=== PATIENT | male | born 1950 | race Caucasian/White ===

== ENCOUNTER 2018-02-26 08:58 | Day surgery (SDC) | payer MEDICARE ==
[2018-02-25 10:45] VITALS: BMI 29.8
[2018-02-26] MEDS ORDERED: Lidocaine 1% (PF) 30 ML VIAL ONE (09:59)
[2018-02-26] MEDS ORDERED: Iopamidol 370 76% 100 ML VIAL ONE (10:24)
[2018-02-26] MEDS ORDERED: Iopamidol 370 76% 50 ML VIAL FS ONE (10:24)
[2018-02-26] MEDS ORDERED: Midazolam HCl 2 mg/2 ml Vial ONE (10:42)
[2018-02-26] MEDS ORDERED: Fentanyl 100 MCG/2 ML VIAL ONE (10:42)
[2018-02-26] MEDS ORDERED: Heparin 10,000 UNITS/1 ML VIAL ONE (11:38)
[2018-02-26] MEDS ORDERED: Prasugrel 10 MG TAB ONE ×3 (11:50→11:51)
[2018-02-26] MEDS ORDERED: Acetaminophen/Codeine 30-300mg Tablet ONE (14:29)
--- NOTE | 2018-02-28 17:53 | EKG ---
Test Reason : POST STENT Blood Pressure : / mmHG Vent. Rate : 062 BPM Atrial Rate : 062 BPM P-R Int : 190 ms QRS Dur : 114 ms QT Int : 462 ms P-R-T Axes : 084 014 112 degrees QTc Int : 468 ms Normal sinus rhythm with sinus arrhythmia T wave abnormality, consider lateral ischemia Prolonged QT Abnormal ECG No previous ECGs available Confirmed by PATRICIO LARA (2) on 02/28/2018 5:53:04 PM Referred By: NIKHIL Confirmed By:PATRICIO LARA
== END 2018-02-26 16:52 | disposition home or self-care (01) ==
LOC: CCL 08:58
PROVIDERS: ATTEND Internal Medicine Cardiovascular Disease
PROC: 4A023N7 Measurement of Cardiac Sampling and Pressure, Left Heart, Percutaneous Approach (ICD-10-PCS; principal; 2018-02-26)
PROC: B2111ZZ Fluoroscopy of Multiple Coronary Arteries using Low Osmolar Contrast (ICD-10-PCS; 2018-02-26)
DX: I25.10 Atherosclerotic heart disease of native coronary artery without angina pectoris (principal); I25.5 Ischemic cardiomyopathy; I11.9 Hypertensive heart disease without heart failure; E78.00 Pure hypercholesterolemia, unspecified; E78.5 Hyperlipidemia, unspecified; E11.9 Type 2 diabetes mellitus without complications; Z79.82 Long term (current) use of aspirin; Z79.84 Long term (current) use of oral hypoglycemic drugs; Z79.899 Other long term (current) drug therapy; Z95.1 Presence of aortocoronary bypass graft
CPT/HCPCS: 85347 ×2; 93005; 93455; 93798; C1769 ×2; C1874; C1887; C9600; 92928; 99152; 99153; J1644; J2001; J2250; J3010

== ENCOUNTER 2018-07-30 14:47 | Emergency (ER) | payer MEDICARE ==
--- NOTE | 2018-07-30 15:43 | RAD ---
TWO VIEW CHEST: Indication: Cough, hypoxia. FINDINGS: There is mild pleural based density at the inferior left chest with slight silhouetting of the left h emidiaphragm. Cardiac silhouette is enlarged. No lobar consolidation is seen. There is osseous degene rative change. IMPRESSION: Mild pleural based density with slight silhouetting of left hemidiaphragm previously on the basis of mild volume pleural fluid. POS: [facility]
[2018-07-30 17:20] LABS: #Lymphocytes 0.6 thou/uL (1.20-3.40); #Monocytes 0.5 thou/uL (0.11-0.59); #Neutrophils 4.4 thou/uL (1.40-6.50); %Eosinophils 0.4 % (0.0-10.0); %Lymphocytes 10.2 % (21.0-51.0); %Neutrophils 80.4 % (42.0-75.0); Hemoglobin 14.5 g/dL (14.0-18.0); Mean Corpuscular HGB CONC 33.4 g/dL (32.0-36.0); Mean Corpuscular Hemoglobin 33.2 pg (27.0-31.0); Mean Corpuscular Volume 99.2 fL (78.0-98.0); Mean Platelet Volume 6.4 fL (7.4-10.4); Platelet Count 178 thou/uL (130-400); RBC Distribution Width 12.2 % (11.5-14.5); Red Blood Cell (RBC) Count 4.37 mill/uL (4.70-6.10); White Blood Cell (WBC) Count 5.5 thou/uL (4.8-10.8)
[2018-07-30 17:45] LABS: ALT (SGPT) 17 U/L (8-55); AST (SGOT) 26 U/L (5-34); Albumin 4.3 g/dL (3.4-4.8); Alkaline Phosphatase 65 U/L (40-150); Anion Gap 16 mmol/L (10-20); BUN (Urea Nitrogen) 20 mg/dL (8.4-25.7); Bilirubin, Total 0.6 mg/dL (0.2-1.2); Calc. Creatinine Clearance 0 mL/min (70-130); Calcium 9.5 mg/dL (7.8-10.44); Carbon Dioxide 24 mmol/L (23-31); Chloride 99 mmol/L (98-107); Estimated GFR-MDRD 80; Globulin 3.2 g/dL (2.4-3.5); Glucose 111 mg/dL (80-115); Potassium 4.5 mmol/L (3.5-5.1); Protein, Total 7.5 g/dL (5.8-8.1); Sodium 134 mmol/L (136-145)
[2018-07-30] MEDS ORDERED: predniSONE 20 MG TAB ONE ×2 (18:37)
[2018-07-30] MEDS ORDERED: Albuterol Sulfate 2.5 mg/3 ml Neb ONE (18:42)
== END 2018-07-30 19:11 | disposition home or self-care (01) ==
LOC: ERS 14:47
DX: J20.9 Acute bronchitis, unspecified (principal); E11.9 Type 2 diabetes mellitus without complications; F17.210 Nicotine dependence, cigarettes, uncomplicated; Z79.51 Long term (current) use of inhaled steroids; Z79.84 Long term (current) use of oral hypoglycemic drugs
CPT/HCPCS: 36415; 71046; 80053; 83605; 83880; 84484; 85025; 87040; 87804; 93005; 94640; J7611; J7620

== ENCOUNTER 2018-08-04 15:18 | Observation (INO) | payer MEDICARE ==
--- NOTE | 2018-08-04 16:07 | RAD ---
PORTABLE CHEST: 08/04/18 HISTORY: Hypoxia. COMPARISON: 07/30/18 exam. Heart size appears borderline size considering somewhat lordotic technique. There are atherosclerotic changes of the aorta. There is some chronic appearing lung changes seen. No signs of focal infiltrat e or evidence for failure. IMPRESSION: Borderline heart size. No signs of overt failure. POS: [facility]
[2018-08-04 16:12] LABS: #Lymphocytes 1.3 thou/uL (1.20-3.40); #Monocytes 0.7 thou/uL (0.11-0.59); #Neutrophils 3.1 thou/uL (1.40-6.50); %Eosinophils 0.4 % (0.0-10.0); %Monocytes 13.2 % (0.0-10.0); %Neutrophils 61.4 % (42.0-75.0); Hemoglobin 14.4 g/dL (14.0-18.0); Mean Corpuscular HGB CONC 32.8 g/dL (32.0-36.0); Mean Corpuscular Hemoglobin 32.2 pg (27.0-31.0); Mean Corpuscular Volume 98.2 fL (78.0-98.0); Mean Platelet Volume 6.9 fL (7.4-10.4); Platelet Count 254 thou/uL (130-400); RBC Distribution Width 12.1 % (11.5-14.5); Red Blood Cell (RBC) Count 4.48 mill/uL (4.70-6.10)
[2018-08-04 16:39] LABS: ALT (SGPT) 23 U/L (8-55); AST (SGOT) 16 U/L (5-34); Albumin 3.6 g/dL (3.4-4.8); Alkaline Phosphatase 75 U/L (40-150); Anion Gap 14 mmol/L (10-20); BUN (Urea Nitrogen) 21 mg/dL (8.4-25.7); Bilirubin, Total 0.6 mg/dL (0.2-1.2); Calc. Creatinine Clearance 0 mL/min (70-130); Calcium 9.6 mg/dL (7.8-10.44); Carbon Dioxide 27 mmol/L (23-31); Chloride 99 mmol/L (98-107); Estimated GFR-MDRD 86; Globulin 3.5 g/dL (2.4-3.5); Glucose 249 mg/dL (80-115); Potassium 4.3 mmol/L (3.5-5.1); Protein, Total 7.1 g/dL (5.8-8.1); Sodium 136 mmol/L (136-145)
[2018-08-04 17:39] LABS: Base Excess-Venous 2.5 mmol/L (-2.0 to 3.0); Bicarbonate (HCO3v) 25.9 mmol/L (22.0-28.0); CO2 Tension (PvCO2) 35.4 mmHg (40.0-50.0); Chloride 100 mmol/L (98-107); Hemoglobin - Calc 14.5 g/dL (14.0-18.0); O2 Tension (PvO2) 67.5 mmHg (35.0-45.0); Potassium 4.2 mmol/L (3.5-5.1); Sodium 136 mmol/L (138-145); pH (Venous) 7.473 (7.320-7.430); vO2 Saturation-calc 94.5 % (60.0-85.0)
[2018-08-04 19:58] LABS: Bilirubin Negative (Negative); Blood, Urine Negative (Negative); Clarity CLEAR (Clear); Glucose, Urine (Dipstick) 100 mg/dL (Negative); Leukocyte Negative (Negative); Nitrite Negative (Negative); Protein, Urine (Dipstick) 100 mg/dL (Neg-Trace); Specific Gravity, Urine 1.028 (1.002-1.036); Urobilinogen 0.2 mg/dL (0.2-1.0)
[2018-08-04 20:00] LABS: Bacteria/HPF None Seen HPF (None Seen); Hyaline Casts/LPF 0-3 HYALINE CAST LPF (0-3 Hyaline); Pathc Cast-AUWi Flag 0.29 (0-2.49); Squamous Epithelial 0-3 HPF (0-3); WBC/HPF 0-3 HPF (0-3)
[2018-08-04 20:37] VITALS: BMI 26.6
[2018-08-04] MEDS ORDERED: Ondansetron PF 4 MG/2 ML Vial IVP PRN (23:38)
[2018-08-04] MEDS ORDERED: Acetaminophen 325 MG TAB PO PRN (23:38)
[2018-08-04] MEDS ORDERED: Ondansetron ODT 4 MG TAB PO PRN (23:38)
[2018-08-05] MEDS ORDERED: methylPREDNISolone Sod Succ 40 MG VIAL IVP SCH (00:44)
[2018-08-05] MEDS ORDERED: Benzonatate 100 MG CAP PO PRN (00:45)
[2018-08-05] MEDS: Albuterol Sulfate 2.5 mg/3 ml Neb NEB SCH ×2 (01:42→02:50)
[2018-08-05] MEDS ORDERED: Albuterol Sulfate 2.5 mg/3 ml Neb NEB PRN (03:15)
[2018-08-05 05:03] LABS: #Lymphocytes 0.7 thou/uL (1.20-3.40); #Monocytes 0.3 thou/uL (0.11-0.59); #Neutrophils 3.9 thou/uL (1.40-6.50); %Basophils 0.1 % (0.0-1.0); %Eosinophils 0.5 % (0.0-10.0); %Lymphocytes 13.4 % (21.0-51.0); %Monocytes 6.7 % (0.0-10.0); %Neutrophils 79.3 % (42.0-75.0); Hemoglobin 13.5 g/dL (14.0-18.0); Mean Corpuscular HGB CONC 32.5 g/dL (32.0-36.0); Mean Corpuscular Hemoglobin 32.2 pg (27.0-31.0); Mean Corpuscular Volume 99.2 fL (78.0-98.0); Mean Platelet Volume 6.6 fL (7.4-10.4); Platelet Count 230 thou/uL (130-400); Red Blood Cell (RBC) Count 4.18 mill/uL (4.70-6.10); White Blood Cell (WBC) Count 4.9 thou/uL (4.8-10.8)
[2018-08-05 05:21] LABS: Anion Gap 14 mmol/L (10-20); BUN (Urea Nitrogen) 15 mg/dL (8.4-25.7); Calc. Creatinine Clearance 119 mL/min (70-130); Carbon Dioxide 26 mmol/L (23-31); Chloride 99 mmol/L (98-107); Estimated GFR-MDRD Greater than 90; Glucose 248 mg/dL (80-115); Potassium 4.6 mmol/L (3.5-5.1); Sodium 134 mmol/L (136-145)
--- NOTE | 2018-08-05 06:09 | HP ---
PRIMARY CARE DOCTOR: Graham Blanco DO CODE STATUS: Full code. TIME OF EVALUATION: 07:30 p.m. CHIEF COMPLAINT: Shortness of breath. HISTORY OF PRESENT ILLNESS: This is a 68-year-old male patient with past medical history of coronary artery disease, status post stents; diabetes type 2; came to the hospital after having shortness of breath for the past 2 weeks associated with cough. No clear triggers. No alleviating factors. He had received some treatment for possible infection, however, he only took 2 pills and symptoms have gotten gradually worse, very severe, the patient was unable to do activities of daily living. Symptoms were generalized, worsening with exertion. REVIEW OF SYSTEMS: CONSTITUTIONAL: No fever, chills, generalized weakness. RESPIRATORY: Patient has cough. No sputum production. Shortness of breath. CARDIOVASCULAR: No chest pain or palpitation. GASTROINTESTINAL: No nausea, vomiting, diarrhea, or abdominal pain. CENTRAL NERVOUS SYSTEM: No dizziness, headache, or feeling lightheaded. GENITOURINARY: No burning on urination. EXTREMITIES: No leg swelling. All other systems were reviewed and negative except for the findings mentioned above. PAST MEDICAL HISTORY: As mentioned in HPI. PAST SURGICAL HISTORY: CABG x5 vessels 20 years ago. PSYCH HISTORY: No previous psych history. SOCIAL HISTORY: The patient uses alcohol, one cigarette a day. No drugs. No alcohol use. FAMILY HISTORY: Reviewed and noncontributory for current presentation KNOWN ALLERGIES: No known drug allergies reported. MEDICATIONS: 1. Metformin. 2. Albuterol. 3. Prednisone. 4. Zithromax. PHYSICAL EXAMINATION: VITAL SIGNS: On presentation, blood pressure 167/53 with heart rate 72, temperature 97.7, oxygen saturation 88% on room air. GENERAL: The patient is alert, oriented, mild distress due to shortness of breath. HEENT: Eyes, normal conjunctivae. Moist oral mucosa. Anicteric. No JVD. RESPIRATORY: Bilateral air entry. No rales. No wheezes. Symmetric expansion. CARDIOVASCULAR: Normal rate, regular rhythm. No murmurs. No gallops. Bilateral leg edema. ABDOMEN: Soft. Normal bowel sounds. MUSCULOSKELETAL: Baseline range of motion and strength. No tenderness. SKIN: Warm intact. No pallor. No rash. No redness. Peripheral pulses are present. Capillary refill seems to be intact. NEUROLOGIC: No evidence of any new focal weakness. Baseline speech. Cranial nerves seems to be intact. PSYCHIATRIC: The patient is in good mood. No anxiety. Optimal judgment. DIAGNOSTIC DATA: EKG was reviewed. The patient has sinus rhythm with a rate of 71, SC 108, QRS 114, QT corrected 432. Chest x-ray was reviewed. The patient has borderline heart size. No sign of heart failure. LABORATORY DATA: Labs were reviewed. White count 4.9, hemoglobin is 13.5, and platelet count 230. Blood gas, VBG was done, pH of 7.47. Sodium 134. GFR greater than 90. Glucose 248. Beta natriuretic peptide was 515. Urine osmo was negative. ASSESSMENT AND PLAN: The patient will be placed in the hospital with following medical problems: 1. Patient presented with acute hypoxic respiratory failure, no clear triggers, possible underlying congestive heart failure. Saturation 88% on room air needing nasal canula to keep saturation above 90%. We will treat underlying condition. Continue oxygen support. 2. Possible underlying congestive heart failure. The patient has elevated proBNP. Reconcile home medications. The patient will be placed on Lasix. We will look for response to treatment and further adjustment. 3. Possible unknown diagnosed chronic obstructive pulmonary disease. The patient history of smoking. The patient has bilateral wheezing. We will put him on steroids, and DuoNebs. We will follow patient. 4. History of diabetes, uncontrolled. Blood sugar 248, reconcile home medications. Put the patient on sliding scale. 5. DVT prophylaxis Job ID: [id number] [facility]
[2018-08-05] MEDS: methylPREDNISolone Sod Succ 40 MG VIAL IVP SCH ×3 (06:32→17:28)
[2018-08-05] MEDS: Spironolactone 25 MG TAB PO SCH (09:15)
[2018-08-05] MEDS: Lisinopril 20 MG TAB PO SCH ×2 (09:15→20:37)
[2018-08-05] MEDS: Enoxaparin Sodium 40 MG/0.4 ML SYRINGE SC SCH (09:15)
[2018-08-05] MEDS: Aspirin 325 mg Enteric Coated Tablet PO SCH ×2 (09:15→20:36)
[2018-08-05] MEDS: Furosemide 40 MG/4 ML VIAL SLOW IVP SCH (09:15)
[2018-08-05] MEDS: Cyanocobalamin (Vitamin B-12) 1,000 MCG TAB PO SCH (09:16)
[2018-08-05] MEDS: Multivitamin W/ Minerals 1 TAB PO SCH (09:16)
--- NOTE | 2018-08-05 11:26 | PDOC.PN ---
- Subjective Encounter Start Date: 08/05/18 Encounter Start Time: 10:45 Mr. Phillips was seen today in follow-up of Acute respiratory failure. He says he is feeling better. He denies chest pain. His notes a non-productive cough - Objective Resuscitation Status - Order Detail: 08/04/18 23:38 Resuscitation Status Routine Resuscitation Status: FULL: Full Resuscitation MAR Reviewed: Yes Vital Signs & Weight: Vital Signs (12 hours) Temp Pulse Resp BP Pulse Ox 08/05/18 10:14 65 16 95 08/05/18 07:26 98.2 F 62 16 156/70 H 93 L 08/05/18 06:44 65 16 92 L 08/05/18 03:43 97.7 F 67 24 H 159/70 H 94 L 08/05/18 01:42 18 92 L 08/04/18 23:35 98.1 F 66 22 H 170/88 H 93 L Weight Weight 201 lb 14.4 oz I&O: 08/04/18 08/05/18 08/06/18 06:59 06:59 06:59 Intake Total 600 Balance 600 Result Diagrams: 08/05/18 04:22 08/05/18 04:22 Additional Labs: Accuchecks 08/04/18 20:57 POC Glucose 256 H Phys Exam - Physical Examination HEENT: PERRLA Respiratory: wheezing present + wheezing and rhonchi bilaterally, no rales Cardiovascular: RRR, no significant murmur, no rub Gastrointestinal: soft, non-tender, no distention, positive bowel sounds Musculoskeletal: pulses present, edema present trace pedal edema bilaterally Neurological: non-focal, moves all 4 limbs Dx/Plan (1) Acute respiratory failure with hypoxia Code(s): J96.01 - ACUTE RESPIRATORY FAILURE WITH HYPOXIA Status: Acute (2) COPD exacerbation Code(s): J44.1 - CHRONIC OBSTRUCTIVE PULMONARY DISEASE W (ACUTE) EXACERBATION Status: Acute (3) CHF exacerbation Code(s): I50.9 - HEART FAILURE, UNSPECIFIED Status: Acute (4) Diabetes mellitus type 2 in nonobese Code(s): E11.9 - TYPE 2 DIABETES MELLITUS WITHOUT COMPLICATIONS Status: Chronic (5) Coronary artery disease Code(s): I25.10 - ATHSCL HEART DISEASE OF [place] CORONARY ARTERY W/O ANG PCTRS Status: Chronic - Plan * Acute respiratory failure with hypoxemia- agree this is most likely from both undiagnosed COPD with exacerbation, and some volume overload- presumably from CHF- continue Lasix IV- await Echo results * Continue Duonebs, and Steroids, and Levaquin IV. recommend outpatient PFT * DM- blood glucose is elevated from steroids- will add a SSI. * CAD and recent STENT- stable
[2018-08-05] MEDS ORDERED: HumaLOG 300 UNITS/3 ML VIAL SC PRN (11:30)
[2018-08-05] MEDS ORDERED: Dextrose 50% Abboject 50 ML SYRINGE SLOW IVP PRN (11:30)
[2018-08-05] MEDS ORDERED: Dextrose 5% in Water 1,000 ML IV PRN (11:30)
[2018-08-05] MEDS: HumaLOG 300 UNITS/3 ML VIAL SC PRN ×2 (11:51→17:27)
[2018-08-05] MEDS ORDERED: Temazepam 15 MG CAP PO PRN (18:01)
[2018-08-05] MEDS ORDERED: Atorvastatin Calcium 10 MG TAB PO SCH (21:00)
[2018-08-05] MEDS ORDERED: Liraglutide [Victoza 3-Pak] 1.8 MG SC SCH (21:00)
[2018-08-06] MEDS: methylPREDNISolone Sod Succ 40 MG VIAL IVP SCH ×3 (00:24→13:31)
[2018-08-06] MEDS: Bacteriostatic Water 30 ML VIAL FS PRN ×2 (00:24→06:01)
[2018-08-06 05:28] LABS: #Lymphocytes 0.7 thou/uL (1.20-3.40); #Monocytes 0.2 thou/uL (0.11-0.59); #Neutrophils 5.1 thou/uL (1.40-6.50); %Basophils 0.2 % (0.0-1.0); %Eosinophils 0.3 % (0.0-10.0); %Lymphocytes 11.7 % (21.0-51.0); %Monocytes 3.8 % (0.0-10.0); Hemoglobin 13.6 g/dL (14.0-18.0); Mean Corpuscular HGB CONC 33.2 g/dL (32.0-36.0); Mean Corpuscular Hemoglobin 32.7 pg (27.0-31.0); Mean Corpuscular Volume 98.5 fL (78.0-98.0); Mean Platelet Volume 6.7 fL (7.4-10.4); Platelet Count 265 thou/uL (130-400); Red Blood Cell (RBC) Count 4.14 mill/uL (4.70-6.10); White Blood Cell (WBC) Count 6.1 thou/uL (4.8-10.8)
[2018-08-06 05:47] LABS: Anion Gap 12 mmol/L (10-20); BUN (Urea Nitrogen) 23 mg/dL (8.4-25.7); Calc. Creatinine Clearance 104 mL/min (70-130); Calcium 8.9 mg/dL (7.8-10.44); Carbon Dioxide 27 mmol/L (23-31); Chloride 98 mmol/L (98-107); Estimated GFR-MDRD 88; Glucose 341 mg/dL (80-115); Potassium 4.9 mmol/L (3.5-5.1); Sodium 132 mmol/L (136-145)
[2018-08-06] MEDS: HumaLOG 300 UNITS/3 ML VIAL SC PRN ×2 (06:07→13:23)
[2018-08-06] MEDS: Lisinopril 20 MG TAB PO SCH (09:29)
[2018-08-06] MEDS: Multivitamin W/ Minerals 1 TAB PO SCH (09:29)
[2018-08-06] MEDS: Spironolactone 25 MG TAB PO SCH (09:29)
[2018-08-06] MEDS: Cyanocobalamin (Vitamin B-12) 1,000 MCG TAB PO SCH (09:29)
[2018-08-06] MEDS: Aspirin 325 mg Enteric Coated Tablet PO SCH (09:29)
[2018-08-06] MEDS: Furosemide 40 MG/4 ML VIAL SLOW IVP SCH (09:30)
[2018-08-06] MEDS: Enoxaparin Sodium 40 MG/0.4 ML SYRINGE SC SCH (09:30)
[2018-08-06] MEDS ORDERED: Dulaglutide [Trulicity] 1.5 MG SC SCH (11:15)
--- NOTE | 2018-08-06 11:42 | PDOC.PN ---
- Subjective Encounter Start Date: 08/06/18 Encounter Start Time: 11:40 Mr. Phillips was seen today in follow-up of Shortness of breath. He is feeling much better today. He would like to go home. - Objective Resuscitation Status - Order Detail: 08/04/18 23:38 Resuscitation Status Routine Resuscitation Status: FULL: Full Resuscitation MAR Reviewed: Yes Vital Signs & Weight: Vital Signs (12 hours) Temp Pulse Resp BP Pulse Ox 08/06/18 10:27 84 16 93 L 08/06/18 07:58 97.7 F 74 16 136/71 93 L 08/06/18 07:06 72 16 92 L 08/06/18 05:39 98 F 60 14 111/56 L 91 L 08/06/18 03:20 92 L Weight Weight 201 lb 14.4 oz I&O: 08/05/18 08/06/18 08/07/18 06:59 06:59 06:59 Intake Total 600 1240 Output Total 300 Balance 600 940 Result Diagrams: 08/06/18 04:55 08/06/18 04:55 Additional Labs: Accuchecks 08/06/18 08/06/18 08/05/18 10:40 06:01 20:36 POC Glucose 378 H 320 H 305 H 08/05/18 17:06 POC Glucose 440 H Phys Exam - Physical Examination HEENT: PERRLA Respiratory: wheezing present + occasional whyeeze, and mild rales at the bases Cardiovascular: RRR, no significant murmur, no rub Gastrointestinal: soft, non-tender, positive bowel sounds Musculoskeletal: no edema Dx/Plan (1) Acute respiratory failure with hypoxia Code(s): J96.01 - ACUTE RESPIRATORY FAILURE WITH HYPOXIA Status: Acute (2) COPD exacerbation Code(s): J44.1 - CHRONIC OBSTRUCTIVE PULMONARY DISEASE W (ACUTE) EXACERBATION Status: Acute (3) CHF exacerbation Code(s): I50.9 - HEART FAILURE, UNSPECIFIED Status: Acute (4) Diabetes mellitus type 2 in nonobese Code(s): E11.9 - TYPE 2 DIABETES MELLITUS WITHOUT COMPLICATIONS Status: Chronic (5) Coronary artery disease Code(s): I25.10 - ATHSCL HEART DISEASE OF [place] CORONARY ARTERY W/O ANG PCTRS Status: Chronic - Plan * Acute on chronic respiratory failure- improved * CHF- better compensated * COPD- presumed- improved * Stable for discharge home.
[2018-08-06 12:03] VITALS: BP 121/62; TEMP 97.6
[2018-08-06] MEDS ORDERED: Carvedilol 25 MG TAB PO SCH (21:00)
[2018-08-06] MEDS ORDERED: glipiZIDE 10 MG TAB PO SCH (21:00)
[2018-08-07] MEDS ORDERED: Prasugrel 10 MG TAB PO SCH (09:00)
[2018-08-07] MEDS ORDERED: Non-Formulary Item 1 EACH (Sacubitril/Valsartan [Entresto 24 Mg-26 Mg Tablet] 1 EACH) PO SCH (21:00)
--- NOTE | 2018-08-09 12:29 | DIS ---
DATE OF ADMISSION: 08/04/2018 DATE OF DISCHARGE: 08/06/2018 PRIMARY CARE PHYSICIAN: The patient's primary care physician is at the [place]. DISCHARGE DISPOSITION: Home. PRIMARY DISCHARGE DIAGNOSES: 1. Acute on chronic respiratory failure with hypoxemia. 2. Congestive heart failure exacerbation. 3. Chronic systolic heart failure exacerbation. 4. Presumed chronic obstructive pulmonary disease exacerbation. 5. Coronary artery disease. 6. Diabetes mellitus, type 2. DISCHARGE MEDICATIONS: 1. The patient is to resume Entresto on Thursday, 2 days from now, as we did not know he was on Entresto and had started lisinopril and there needs to be a 2-day washout. This was explained to the patient, that is twice a day. 2. Prednisone 10 mg daily for 4 days. 3. Levaquin 500 mg daily for 4 days. 4. DuoNeb q.i.d. as needed. 5. Simvastatin 20 mg q.p.m. 6. Effient 10 mg daily. 7. Multivitamin once a day. 8. Metformin 1000 mg twice a day. 9. Glipizide 10 mg twice daily. 10. Lasix 40 mg daily. 11. Trulicity 1.5 mg subcu weekly. 12. Vitamin B12 of 1000 mcg daily. 13. Carvedilol 25 mg twice a day. 14. Aspirin 325 mg twice daily. PROCEDURES: Procedures done during admission: The patient had an echocardiogram in which the ejection fraction was estimated at 40% to 45%. There was some inferior hypokinesis and grade 1/3 diastolic dysfunction. CODE STATUS: Full code. ALLERGIES: NO KNOWN DRUG ALLERGIES. HOSPITAL COURSE: Mr. Phillips is a pleasant 68-year-old gentleman, who presented to the emergency room complaining of shortness of breath, cough, and wheezing. During his evaluation, he had a chest x-ray, which showed some findings of mild CHF decompensation. He was admitted, started on IV Lasix as well as DuoNeb and antibiotics and steroids. Over the course of the next 2 days, he has improved to the point where he is stable for discharge. He can follow up with his [facility] as an outpatient and also with his primary care physician at the [place]. We recommended that he have an outpatient pulmonary function test. Job ID: [id number]
== END 2018-08-06 13:45 | disposition home or self-care (01) ==
LOC: ERS 15:18 → 2SW 20:17
PROVIDERS: ADMIT Emergency Medicine; ATTEND Emergency Medicine
DX: J96.21 Acute and chronic respiratory failure with hypoxia (principal); I50.23 Acute on chronic systolic (congestive) heart failure; E11.9 Type 2 diabetes mellitus without complications; I25.10 Atherosclerotic heart disease of native coronary artery without angina pectoris; F17.210 Nicotine dependence, cigarettes, uncomplicated; Z79.82 Long term (current) use of aspirin; Z79.52 Long term (current) use of systemic steroids; Z79.84 Long term (current) use of oral hypoglycemic drugs; Z79.899 Other long term (current) drug therapy; Z95.1 Presence of aortocoronary bypass graft; Z95.5 Presence of coronary angioplasty implant and graft
CPT/HCPCS: 71045; 80048 ×2; 80053; 82330; 82435; 82803; 82962 ×3; 83605; 83880; 84132; 84295; 84484; 85014; 85025 ×3; 86710 ×2; 93005; 93306; 94640 ×4; 96365; 96366; 96372 ×2; 96375; 96376 ×2; 99285; G0378 ×2; 36415; 36416; 81003; 81015; J1650; J1940; J1956; J2920; J7611; J7620

== ENCOUNTER 2021-05-07 14:18 | Outpatient (CLI) | payer MEDICARE ==
[~2021-05-07 14:18] MED LIST: Iopamidol 370 76% 100 ML VIAL ONE
== END 2021-05-07 14:19 | disposition home or self-care (01) ==
LOC: BICCT 14:18
PROVIDERS: ATTEND Family Medicine
DX: R14.0 Abdominal distension (gaseous) (principal); E11.618 Type 2 diabetes mellitus with other diabetic arthropathy; N28.1 Cyst of kidney, acquired; K57.30 Diverticulosis of large intestine without perforation or abscess without bleeding; N40.0 Benign prostatic hyperplasia without lower urinary tract symptoms; Z72.0 Tobacco use
CPT/HCPCS: 74177; 82565; Q9967

== ENCOUNTER 2022-05-28 07:58 | Outpatient (CLI) | payer OTHER | END 2022-05-28 07:59 | disposition home or self-care (01) | LOC: BICULT 07:58 | PROVIDERS: ATTEND Internal Medicine | DX: Z13.6 Encounter for screening for cardiovascular disorders (principal) | CPT/HCPCS: 76775 ==